=== PATIENT | female | born 1975 | race Caucasian/White ===

== ENCOUNTER 2021-04-29 05:32 | Outpatient (CLI) | payer OTHER ==
[~2021-04-29] VITALS: Ht 177.8 cm; Wt 77.3 kg
[~2021-04-29 05:32] MED LIST: ACHYD1T PO; CITA20TA4 PO; CYCL10TA9 PO; OXYC1TAB5 PO; SPRINTEC PO; TRAM50TA2 PO
== END 2021-04-30 09:26 | disposition home or self-care (01) ==
LOC: PREOP 05:32
PROVIDERS: ATTEND Obstetrics & Gynecology
DX: Z01.818 Encounter for other preprocedural examination (principal)

== ENCOUNTER → 2021-11-25 | Outpatient (CLI) | payer OTHER ==
[~2021-11-25] MED LIST changes: +DOCU-143 PO; +ESTR2TAB3 PO; +IBUP-1780 PO; +OXYC1TAB87 PO
--- NOTE | 2021-11-25 13:17 | Diagnostic Imaging Report ---
INDICATION: Right knee pain. TIME OF EXAM: 1:09 PM 3 views of the right knee were obtained. Alignment is normal. Joint spaces are fairly well maintained. No fracture, dislocation or effusion is seen. IMPRESSION: No acute bony abnormality is detected. Dictated by: Dictated on workstation # [id number]
== END ==
LOC: RAD FS 12:53
PROVIDERS: ATTEND Nurse Practitioner
DX: M25.561 Pain in right knee (principal)
CPT/HCPCS: 73562

== ENCOUNTER → 2022-09-03 | Outpatient (CLI) | payer OTHER ==
--- NOTE | 2022-09-03 13:40 | Diagnostic Imaging Report ---
INDICATION: Left knee pain. FINDINGS: 3 views. Joint spaces are well-maintained. The articulating surfaces are smooth. No fractures. Patellofemoral joint shows good alignment. There are no hypertrophic bony changes. IMPRESSION: Normal left knee. Dictated by: Dictated on workstation # [id number]
== END ==
LOC: RAD FS 08:39
PROVIDERS: ATTEND Nurse Practitioner
DX: M25.562 Pain in left knee (principal)
CPT/HCPCS: 73562

== ENCOUNTER 2022-11-02 12:11 | Emergency (ER) | payer SELFPAY ==
[~2022-11-02] VITALS: Ht 177.8 cm; Wt 81.6 kg
--- NOTE | 2022-11-02 12:53 | ED Abdominal Pain ---
General Chief Complaint: Abdominal/GI Problems Stated Complaint: ABD PAIN Nursing Triage Note: PT TO ER WITH C/O LLQ PAIN THAT BEGAN AT WORK AROUND 0930 THIS MORNING. 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 States the pain is now radiating into the left upper quadrant. States she took 2 rapid release Aleve at 10:00 which did not provide relief. Denies fevers, nausea, diarrhea, constipation, dysuria. States her last bowel movement was yes terday morning and possibly yesterday evening, states her stool was normal. Denies past medical history. Past surgeries include laparoscopic surgery for endometriosis, complete hysterectomy, and 2 C-sections. Currently taking estradiol. (YADI SANTOS APRN) Allergies and Home Medications Allergies Coded Allergies: No Known Drug Allergies (Unverified , 02/16/13) Patient Home Medication List Home Medication List Reviewed: Yes (YADI SANTOS APRN) Docusate Sodium (Colace) 100 Mg Capsule, 100 MG PO BID Prescribed by: CARMEN DUNNE on 05/06/21 1245 Estradiol (Estradiol Tablet) 2 Mg Tablet, 2 MG PO DAILY Prescribed by: CARMEN DUNNE on 05/06/21 1245 Ibuprofen (Ibuprofen) 800 Mg Tablet, 800 MG PO Q6H PRN for PAIN Prescribed by: CARMEN DUNNE on 05/06/21 1245 Oxycodone HCl/Acetaminophen (Percocet 5-325 mg Tablet) 1 Each Tablet, 1 TAB PO Q4H Prescribed by: CARMEN DUNNE on 05/06/21 1246 Review of Systems Review of Systems Constitutional: see HPI (YADI SANTOS APRN) Past Taalhth-Ftgnbr-Inlcnk Hx Patient Social History Tobacco Use?: Yes Tobacco type used: Cigarettes Substance use?: No Alcohol Use?: Yes Alcohol Frequency: Rarely (YADI SANTOS APRN) Immunizations Up To Date Influenza Vaccine Up-to-Date: No; Not Current (YADI SANTOS APRN) Seasonal Allergies Seasonal Allergies: Yes (YADI SANTOS APRN) Past Medical History Surgery/Hospitalization HX: TOTAL HYST, C SECTION X2, EAR SURGERY Surgeries: Yes (DX LAP; ) Appendectomy, Section, Ear Surgery Respiratory: No Cardiac: No Neurological: Yes Concussion Reproductive Disorders: Yes (DUB, CPP) Female Reproductive Disorders: Endometriosis, Ovarian Cyst Genitourinary: No Gastrointestinal: No Musculoskeletal: Yes (ARTHRITIS LOWER BACK, RIGHT SHOULDER TINNITUS/BURSITIS) Arthritis Endocrine: No HEENT: No Cancer: No Psychosocial: Yes Anxiety Integumentary: No Blood Disorders: No (YADI SANTOS APRN) Physical Exam Vital Signs Vital Signs - First Documented 11/02/22 11/02/22 12:32 14:58 Temp 36.7 Pulse 76 Resp 18 B/P (MAP) 142/87 (105) Pulse Ox 100 O2 Delivery Room Air (CAROLE,JOHN K DO) Vital Signs Capillary Refill : (YADI SANTOS APRN) Height/Weight/BMI Height: '" Weight: lbs. oz. kg; 25.00 BMI Method: General Appearance: WD/WN, mild distress Neck: supple, normal inspection Respiratory: lungs clear, normal breath sounds, no respiratory distress, no accessory muscle use Cardiovascular: regular rate, rhythm, no edema, no gallop, no JVD, no murmur Gastrointestinal: normal bowel sounds, soft, no organomegaly, no pulsatile mass, tenderness (Mild LUQ tenderness, moderate LLQ tenderness) Extremities: normal range of motion, normal inspection Neurologic/Psychiatric: alert, normal mood/affect, oriented x 3 Skin: normal color, warm/dry (YADI SANTOS APRN) Progress/Results/Core Measures Results/Orders Lab Results Laboratory Tests Test 11/02/22 12:50 11/02/22 13:20 Range/Units White Blood Count 7.2 4.3-11.0 10^3/uL Red Blood Count 4.33 3.80-5.11 10^6/uL Hemoglobin 13.3 11.5-16.0 g/dL Hematocrit 39 35-52 % Mean Corpuscular Volume 91 80-99 fL Mean Corpuscular Hemoglobin 31 25-34 pg Mean Corpuscular Hemoglobin Concent 34 32-36 g/dL Red Cell Distribution Width 12.5 10.0-14.5 % Platelet Count 220 130-400 10^3/uL Mean Platelet Volume 10.3 9.0-12.2 fL Immature Granulocyte % (Auto) 0 % Neutrophils (%) (Auto) 58 42-75 % Lymphocytes (%) (Auto) 35 12-44 % Monocytes (%) (Auto) 6 0-12 % Eosinophils (%) (Auto) 1 0-10 % Basophils (%) (Auto) 0 0-10 % Neutrophils # (Auto) 4.2 1.8-7.8 10^3/uL Lymphocytes # (Auto) 2.5 1.0-4.0 10^3/uL Monocytes # (Auto) 0.4 0.0-1.0 10^3/uL Eosinophils # (Auto) 0.1 0.0-0.3 10^3/uL Basophils # (Auto) 0.0 0.0-0.1 10^3/uL Immature Granulocyte # (Auto) 0.0 0.0-0.1 10^3/uL Sodium Level 142 135-145 MMOL/L Potassium Level 3.7 3.6-5.0 MMOL/L Chloride Level 109 H 98-107 MMOL/L Carbon Dioxide Level 25 21-32 MMOL/L Anion Gap 8 5-14 MMOL/L Blood Urea Nitrogen 12 7-18 MG/DL Creatinine 0.82 0.60-1.30 MG/DL Estimat Glomerular Filtration Rate 90 BUN/Creatinine Ratio 15 Glucose Level 82 70-105 MG/DL Calcium Level 9.3 8.5-10.1 MG/DL Corrected Calcium 9.0 8.5-10.1 MG/DL Total Bilirubin 0.3 0.1-1.0 MG/DL Aspartate Amino Transf (AST/SGOT) 19 5-34 U/L Alanine Aminotransferase (ALT/SGPT) 16 0-55 U/L Alkaline Phosphatase 59 40-136 U/L Total Protein 7.1 6.4-8.2 GM/DL Albumin 4.4 3.2-4.5 GM/DL Amylase Level 71 25-125 U/L Lipase 19 8-78 U/L Urine Color YELLOW Urine Clarity CLEAR Urine pH 6.5 5-9 Urine Specific [place] <=1.005 1.016-1.022 Urine Protein NEGATIVE NEGATIVE Urine Glucose (UA) NEGATIVE NEGATIVE Urine Ketones NEGATIVE NEGATIVE Urine Nitrite NEGATIVE NEGATIVE Urine Bilirubin NEGATIVE NEGATIVE Urine Urobilinogen 0.2 < = 1.0 MG/DL Urine Leukocyte Esterase NEGATIVE NEGATIVE Urine RBC (Auto) 1+ H NEGATIVE Urine RBC 0-2 /HPF Urine WBC NONE /HPF Urine Squamous Epithelial Cells RARE /HPF Urine Crystals NONE /LPF Urine Bacteria TRACE /HPF Urine Casts NONE /LPF Urine Mucus NEGATIVE /LPF Urine Culture Indicated NO (JOHN LAM DO) Vital Signs/I&O 11/02/22 11/02/22 12:32 14:58 Temp 36.7 Pulse 76 62 Resp 18 18 B/P (MAP) 142/87 (105) 118/77 Pulse Ox 100 O2 Delivery Room Air (JOHN LAM DO) Blood Pressure Mean: 105 Progress Progress Note #1: Time: 13:00 Progress Note Patient seen and evaluated, sitting on bed, mild distress. Based on exam and symptoms, differential diagnosis includes but is not limited to diverticulitis, colitis, gastritis, constipation, nephrolithiasis. Work-up initiated including CBC, CMP, amylase, lipase, UA, CT abdomen/pelvis. Fentanyl ordered for pain Progress Note #2: Time: 14:32 Progress Note Labs reviewed. CBC grossly negative, WBC 7.3, globin 13.3. CMP grossly negative, chloride slightly elevated 109. UA shows 1+ RBC, negative for infection. Waiting for CT read. Progress Note #3: Time: 14:[address] shows possible nephrolithiasis within the kidneys, none within the ureters. Discussed results with patient. Informed her that she possibly passed a kidney stone due to blood in urine. Discharge instructions and return precautions provided. (YADI SANTOS APRN) Diagnostic Imaging Diagonstic Imaging: CT Plain Films/CT/US/NM/MRI: abdomen, pelvis Comments [facility]. [place], [place] NAME: DARIAALANNAH A [facility] REC#: [id number] PT STATUS: REG ER : 1975 PHYSICIAN: YADI SANTOS APRN ADMIT DATE: 11/02/22/ER Signed Date of Exam:11/02/22 CT ABDOMEN/PELVIS W PROCEDURE: CT abdomen and pelvis with contrast. TECHNIQUE: Multiple contiguous axial images were obtained through the abdomen and pelvis after administration of intravenous contrast. Auto Exposure Controls were utilized during the CT exam to meet ALARA standards for radiation dose reduction. All CT scans use one or more of the following dose optimizing techniques: Automated exposure control, MA and/or KvP adjustment based on patient size and exam type or iterative reconstruction. INDICATION: Left lower quadrant pain. No prior studies are available for comparison. FINDINGS: The lung bases are clear. There is a 10 mm low-attenuation lesion in the right lobe of the liver, too small to characterize but perhaps a small cyst. Gallbladder is contracted. There is no biliary ductal dilatation. The pancreas and spleen are unremarkable. No adrenal mass is identified. There are small hyperdense foci within both kidneys, likely representing nonobstructing calculi. No ureteral calculi or hydronephrosis is identified. The aorta is nonaneurysmal. The small and large bowel loops appear to be normal in caliber. No obstruction is seen. There is no free fluid or fluid collection identified. Bladder is decompressed. Uterus appears to be surgically absent. No inflammatory changes are identified in the abdomen or pelvis. IMPRESSION: 1. Probable bilateral nonobstructing nephrolithiasis. No ureteral calculi or hydronephrosis is detected. 2. Otherwise, unremarkable CT of the abdomen and pelvis. No acute feature is detected. Dictated by: Dictated on workstation # [id number] Dict: 11/02/22 1420 Trans: 11/02/22 1603 [id number] Interpreted by: JOSSELIN SANTAMARIA MD Electronically signed by: JOSSELIN SANTAMARIA MD 11/02/22 1603 (YADI SANTOS APRN) Departure Impression Primary Impression: Abdominal pain Disposition: 01 HOME, SELF-CARE Condition: Stable Departure-Patient Inst. Decision time for Depature: 14:48 (YADI SANTOS APRN) Referrals: LYNETTE TARANGO APRN (PCP) Primary Care Physician [facility] (Family) Primary Care Physician Patient Instructions: Kidney Stone, Adult ED Add. Discharge Instructions: Take ibuprofen or Tylenol as needed for pain. Return for worsening pain, fever, recurrent vomiting, or any other new, concerning, worsening symptoms. Follow-up with your primary care provider. Discuss with your primary the cyst found on your liver. All discharge instructions reviewed with patient and/or family. Voiced understanding. Work/School Note: Work Release Form Date Seen in the Emergency Department: Nov 02, 2022 Return to Work: Nov 04, 2022 Restrictions: No Restrictions ATTENDING PHYSICIAN NOTE: I WAS PHYSICALLY PRESENT ER PHYSICIAN, BUT I WAS NOT INVOLVED IN ANY DECISION MAKING OR ANY CARE OF THIS PATIENT AND I AM NOT COLLABORATING PHYSICIAN. (JOHN LAM DO) YADI SANTOS APRN Nov 02, 2022 12:53 JOHN LAM DO Nov 04, 2022 05:49
[2022-11-02 12:57] LABS: BASOPHILS % (AUTO) 0 % (0-10); EOSINOPHILS # (AUTO) 0.1 10^3/uL (0.0-0.3); EOSINOPHILS % (AUTO) 1 % (0-10); HEMATOCRIT 39 % (35-52); HEMOGLOBIN 13.3 g/dL (11.5-16.0); LYMPHOCYTES # (AUTO) 2.5 10^3/uL (1.0-4.0); LYMPHOCYTES % (AUTO) 35 % (12-44); MEAN CORPUSCULAR HEMOGLOBIN 31 pg (25-34); MEAN CORPUSCULAR HGB CONC 34 g/dL (32-36); MEAN CORPUSCULAR VOLUME 91 fL (80-99); MEAN PLATELET VOLUME 10.3 fL (9.0-12.2); MONOCYTES # (AUTO) 0.4 10^3/uL (0.0-1.0); MONOCYTES % (AUTO) 6 % (0-12); NEUTROPHILS # (AUTO) 4.2 10^3/uL (1.8-7.8); NEUTROPHILS % (AUTO) 58 % (42-75); PLATELET COUNT 220 10^3/uL (130-400); WHITE BLOOD COUNT 7.2 10^3/uL (4.3-11.0)
[2022-11-02] MEDS ORDERED: fentaNYL INJ 100 MCG/2 ML AMP IVP ONE (13:00)
[2022-11-02] MEDS ORDERED: HOLD METFORMIN - RECEIVED CONTRAST 20 ML VIAL IV SCH (13:00)
[2022-11-02] MEDS ORDERED: NS 100 ML (IVPB) BAG IV ONE (13:00)
[2022-11-02] MEDS ORDERED: IOHEXOL 350 MG/ML 100 ML (OMNIPAQUE 350) VIAL IV ONE (13:00)
[2022-11-02 13:08] LABS: ALBUMIN 4.4 GM/DL (3.2-4.5); POTASSIUM 3.7 MMOL/L (3.6-5.0)
[2022-11-02 13:09] LABS: CALCIUM 9.3 MG/DL (8.5-10.1)
[2022-11-02 13:10] LABS: TOTAL PROTEIN 7.1 GM/DL (6.4-8.2)
[2022-11-02 13:12] LABS: BILIRUBIN,TOTAL 0.3 MG/DL (0.1-1.0)
[2022-11-02 13:14] LABS: CREATININE SERUM 0.82 MG/DL (0.60-1.30)
[2022-11-02 13:27] LABS: BILIRUBIN,URINE NEGATIVE (NEGATIVE); CLARITY,URINE CLEAR; COLOR,URINE YELLOW; GLUCOSE, URINE (UA) NEGATIVE (NEGATIVE); KETONES,URINE NEGATIVE (NEGATIVE); LEUKOCYTE ESTERASE ,URINE NEGATIVE (NEGATIVE); NITRITE,URINE NEGATIVE (NEGATIVE); PH,URINE 6.5 (5-9); PROTEIN,URINE NEGATIVE (NEGATIVE)
[2022-11-02 14:02] LABS: BACTERIA,URINE TRACE /HPF; RBC,URINE 0-2 /HPF; SQUAMOUS EPITHELIAL CELL,UR RARE /HPF
--- NOTE | 2022-11-02 14:28 | Diagnostic Imaging Report ---
PROCEDURE: CT abdomen and pelvis with contrast. TECHNIQUE: Multiple contiguous axial images were obtained through the abdomen and pelvis after administration of intravenous contrast. Auto Exposure Controls were utilized during the CT exam to meet ALARA standards for radiation dose reduction. All CT scans use one or more of the following dose optimizing techniques: Automated exposure control, MA and/or KvP adjustment based on patient size and exam type or iterative reconstruction. INDICATION: Left lower quadrant pain. No prior studies are available for comparison. FINDINGS: The lung bases are clear. There is a 10 mm low-attenuation lesion in the right lobe of the liver, too small to characterize but perhaps a small cyst. Gallbladder is contracted. There is no biliary ductal dilatation. The pancreas and spleen are unremarkable. No adrenal mass is identified. There are small hyperdense foci within both kidneys, likely representing nonobstructing calculi. No ureteral calculi or hydronephrosis is identified. The aorta is nonaneurysmal. The small and large bowel loops appear to be normal in caliber. No obstruction is seen. There is no free fluid or fluid collection identified. Bladder is decompressed. Uterus appears to be surgically absent. No inflammatory changes are identified in the abdomen or pelvis. IMPRESSION: 1. Probable bilateral nonobstructing nephrolithiasis. No ureteral calculi or hydronephrosis is detected. 2. Otherwise, unremarkable CT of the abdomen and pelvis. No acute feature is detected. Dictated by: Dictated on workstation # [id number]
[2022-11-02] MEDS ORDERED: KETOROLAC 15 MG/ML VIAL IVP ONE (14:45)
[2022-11-02 14:58] VITALS: BP 118/77
== END 2022-11-02 14:58 | disposition home or self-care (01) ==
LOC: EDUNIT# 12:11 → ER 12:13
DX: R10.32 Left lower quadrant pain (principal); R10.12 Left upper quadrant pain; F17.210 Nicotine dependence, cigarettes, uncomplicated
CPT/HCPCS: 36415; 74177; 80053; 81000; 82150; 83690; 84703; 85025